=== PATIENT | male | born 1965 | race Caucasian/White ===

== ENCOUNTER 2017-12-07 09:19 | Emergency (ER) | payer OTHER ==
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
[2017-12-07] MEDS: KETOROLAC 60 MG/2 ML VIAL IM STA (10:14)
== END 2017-12-07 10:18 | disposition home or self-care (01) ==
LOC: ER 09:19
DX: G89.11 Acute pain due to trauma (principal); M54.2 Cervicalgia; V47.5XXA Car driver injured in collision with fixed or stationary object in traffic accident, initial encounter; M54.12 Radiculopathy, cervical region
CPT/HCPCS: 96372; 99283; J1885